=== PATIENT | female | born 1960 | race Caucasian/White ===

== ENCOUNTER → 2016-03-02 | Outpatient (CLI) | payer BC ==
[~2016-03-02] MED LIST: ALBUAER2 INH; BUDESUS; CALCTAB5 PO; CLRD24 PO; MULT-506 PO; SNG10 PO; SYN75 PO
--- NOTE | 2016-03-03 12:46 | MAMMOGRAPHY REPORT ---
BILATERAL DIGITAL SCREENING MAMMOGRAM TOMOSYNTHESIS WITH CAD: 03/02/2016 CLINICAL HISTORY: Routine screening. Patient has no complaints. TECHNIQUE: Breast tomosynthesis in addition to standard 2D mammography was performed. Current study was also evaluated with a Computer Aided Detection (CAD) system. COMPARISON: Comparison is made to exams dated: 08/28/2013 mammogram, 10/10/2011 mammogram, 04/24/2014 m ammogram, 09/11/2013 mammogram, and 09/27/2010 mammogram - [facility]. BREAST COMPOSITION: The tissue of both breasts is heterogeneously dense, which may obscure small ma sses. FINDINGS: There is a possible round 10 mm mass with obscured margins seen within the left medial br east on the cc view only, for which ultrasound and possible additional spot compression views are re commended for further evaluation. This may represent a cyst. A lobulated circumscribed oval 7 mm m ass seen within the right lateral anterior breast appears increased in size compared to the spot mag nification views from the March 2014 exam. Recommend ultrasound and possible additional views fo r further evaluation. The remainder of both breasts are stable compared to prior exams, without suspicious masses, calcifi cations, or areas of architectural distortion noted. Small benign-appearing mass in the right lower inner quadrant is stable compared to prior exams. A biopsy marker clip is again noted in the right upper outer quadrant. IMPRESSION: ACR BI-RADS CATEGORY 0: INCOMPLETE EVALUATION: NEED ADDITIONAL IMAGING EVALUATION Right lateral breast mass and left medial breast mass, for which additional imaging evaluation is re commended. The patient will be called to schedule an appointment. Approximately 10% of breast cancers are not detected with mammography. A negative mammographic repor t should not delay biopsy if a clinically suggestive mass is present. Delilah Ramírez M.D. ah/:03/03/2016 09:16:52 Radioisotope Technologist: Dmitry Gross RT(R)(M), [facility] letter sent: Addl Imaging 0 BI-RADS Code: ACR BI-RADS Category 0: Incomplete Evaluation: Need Additional Imaging Evaluation
== END | disposition home or self-care (01) ==
LOC: C.MAMM 16:26
PROVIDERS: ATTEND Obstetrics & Gynecology
DX: Z12.31 Encounter for screening mammogram for malignant neoplasm of breast (principal); N63 Unspecified lump in breast

== ENCOUNTER → 2016-09-07 | Outpatient (CLI) | payer BC ==
--- NOTE | 2016-09-07 15:23 | MAMMOGRAPHY REPORT ---
UNILATERAL LEFT DIGITAL DIAGNOSTIC MAMMOGRAM TOMOSYNTHESIS WITH CAD AND TARGETED LEFT ULTRASOUND: 08/26 CLINICAL HISTORY: 6 Month Follow-up Left. TECHNIQUE: Breast tomosynthesis in addition to standard 2D mammography was performed. Current study was also evaluated with a Computer Aided Detection (CAD) system. Left CC and MLO 2-D and tomosynthes is images were obtained. COMPARISON: Comparison is made to exams dated: 03/10/2016 ultrasound, 03/02/2016 mammogram, 08/28/2013 ma mmogram, 10/10/2011 mammogram, 09/27/2010 mammogram - [facility], and 05/20/2008. BREAST COMPOSITION: The tissue of the left breast is heterogeneously dense, which may obscure small masses. FINDINGS: Possible obscured 9 mm mass within the left medial breast on the cc view appears stable ma mmographically compared to the February 2016 exam. The remainder of the left breast is also stable co mpared to prior exams, without suspicious masses, calcifications, or areas of architectural distortio n noted. Targeted ultrasound was performed of the area of the previously seen left breast mass. In the left b reast at 9:30, 2 cm from the nipple, again noted is an oval hypoechoic parallel circumscribed mass wi th a few thin echogenic internal septations. The mass currently measures 9 x 4 x 6 mm, and is stable to slightly smaller compared to the February 2016 exam where the mass measured 11 x 4 x 8 mm. This m ay correspond with the mammographic mass and is probably benign and likely represent a cyst cluster. An oval anechoic benign simple cyst measuring 4 mm is noted in the left breast at 9:00, 2 cm from th e nipple. Another anechoic benign cyst with a thin internal septation measuring 3 x 2 mm is also not ed in the left breast at 10:00, 2 cm from the nipple. No suspicious solid masses are evident. IMPRESSION: ACR-BI-RADS CATEGORY 3: PROBABLY BENIGN, TARGETED ULTRASOUND ACR-BI-RADS CATEGORY 3: PRO BABLY BENIGN No significant interval change in size of hypoechoic 9 mm mass in the left 9:30 breast on ultrasound, which may correspond with the stable obscured mammographic mass. The mass is probably benign and tangela damon represents a cyst cluster. Recommend bilateral diagnostic tomosynthesis mammograms in 6 months, to reevaluate the left breast mass and for routine mammography of the right breast. The patient has been verbally notified of the results. Approximately 10% of breast cancers are not detected with mammography. A negative mammographic report should not delay biopsy if a clinically suggestive mass is present. Delilah Ramíerz M.D. ah/:09/07/2016 11:44:40 Weigh Boss: Shaina SLADE)([place]), [facility] letter sent: Follow Up Recommended 3 BI-RADS Code: ACR-BI-RADS Category 3: Probably Benign Ultrasound BI-RADS: ACR-BI-RADS Category 3: Pr obably Benign
== END | disposition home or self-care (01) ==
LOC: C.MAMM 10:29
PROVIDERS: ATTEND Physician Assistant
DX: R92.2 Inconclusive mammogram (principal); N63 Unspecified lump in breast

== ENCOUNTER → 2016-11-17 | Outpatient (CLI) | payer BC ==
--- NOTE | 2016-11-17 16:03 | DIAGNOSTIC IMAGING REPORT ---
THYROID ULTRASONOGRAPHY CLINICAL HISTORY: E03.9 Hypothyroidism COMPARISON STUDY: 02/04/2016 FINDINGS: The patient is status post a previous thyroidectomy. No thyroid tissue is visualized. No pathologic masses are visualized within the thyroid bed.. IMPRESSION: 1. Evidence of a prior thyroidectomy 2. No pathologic masses are visualized within the thyroid bed. Electronically signed by: Nimesh Rob M.D. 11/17/2016 4:02 PM Dictated Date/Time: 11/17/2016 4:01 PM
[2016-11-17 17:53] LABS: THYROID STIMULATING HORMONE 0.045 uIu/ml (0.300-4.500)
[2016-11-21 11:43] LABS: THYROGLOBULIN <0.1 NG/ML (2.8-40.9)
== END | disposition home or self-care (01) ==
LOC: C.ULTR 15:39
PROVIDERS: ATTEND Internal Medicine Endocrinology, Diabetes & Metabolism
DX: E03.9 Hypothyroidism, unspecified (principal); Z98.890 Other specified postprocedural states

== ENCOUNTER → 2017-03-16 | Outpatient (CLI) | payer BC ==
--- NOTE | 2017-03-19 07:45 | MAMMOGRAPHY REPORT ---
BILATERAL DIGITAL DIAGNOSTIC MAMMOGRAM TOMOSYNTHESIS WITH CAD AND TARGETED BILATERAL ULTRASOUND: 03/16 CLINICAL HISTORY: Short interval follow-up of left breast mass. The patient reports no current compl aints. TECHNIQUE: Breast tomosynthesis in addition to standard 2D mammography was performed. Current study was also evaluated with a Computer Aided Detection (CAD) system. Bilateral CC and MLO 2-D and tomosy nthesis images were obtained. COMPARISON: Comparison is made to exams dated: 09/07/2016 mammogram, 09/07/2016 ultrasound, 03/10/2016 ultrasound, 03/02/2016 mammogram, 08/28/2013 mammogram, and 10/10/2011 mammogram - [facility]. BREAST COMPOSITION: The tissue of both breasts is heterogeneously dense, which may obscure small mas ses. FINDINGS: There is a partially circumscribed and partially obscured 6 mm mass in the right lower inn er quadrant, for which ultrasound was performed. The remainder of both breasts are stable compared t o prior exams, without suspicious masses, calcifications, or areas of architectural distortion noted. A biopsy marker clip is again noted within the right upper outer quadrant. Targeted ultrasound was performed of the area of the previously seen left breast mass for which a fol low-up was recommended. In the left breast at 9:30, approximately 2 cm from the nipple, there is an oval parallel circumscribed hypoechoic mass which measures 9 x 4 x 8 mm. This is not significantly c hanged in size and appearance dating back to the February 2016 exam and is probably benign and may rep resent a cyst cluster, prominent fat lobule, or benign solid mass such as a fibroadenoma. Adjacent t o this is a small 3 mm anechoic benign simple cyst. In the right breast at 4:00 periareolar region, there is an oval circumscribed anechoic mass with a few thin internal septations, measuring 6 x 6 mm. This corresponds with the mammographic mass and is consistent with a benign cyst. Slightly inferio rly at approximately 4:30 periareolar region, another similar appearing circumscribed anechoic mass w ith a few thin internal septations is seen, which measures 3 x 4 x 4 mm, also consistent with a benig n cyst. IMPRESSION: ACR-BI-RADS CATEGORY 3: PROBABLY BENIGN, TARGETED ULTRASOUND ACR-BI-RADS CATEGORY 3: PRO BABLY BENIGN 1. Hypoechoic 9 mm mass in the left 9:30 breast is stable dating back to at least the February 2016 e xam and is probably benign. Recommend bilateral diagnostic tomosynthesis mammograms and repeat targe singh ultrasound in 12 months, to confirm 2 years of stability of the left breast mass and for routine mammography of the right breast. 2. Two adjacent benign cysts in the right 4:00 and 4:30 periareolar breast on ultrasound, one of whic h corresponds with a mammographic mass. The patient has been verbally notified of the results. Approximately 10% of breast cancers are not detected with mammography. A negative mammographic report should not delay biopsy if a clinically suggestive mass is present. Delilah Ramírez M.D. ah/:03/16/2017 14:24:28 Technology Services Manager: Dmitry CHERY(Rubin)([place]), [facility] letter sent: Follow Up Recommended 3 BI-RADS Code: ACR-BI-RADS Category 3: Probably Benign Ultrasound BI-RADS: ACR-BI-RADS Category 3: Pr obably Benign
== END | disposition home or self-care (01) ==
LOC: C.MAMM 13:51
PROVIDERS: ATTEND Physician Assistant
DX: N63.24 Unspecified lump in the left breast, lower inner quadrant (principal); N60.01 Solitary cyst of right breast

== ENCOUNTER → 2017-05-22 | Outpatient (CLI) | payer BC | END | disposition home or self-care (01) | LOC: C.LAB 17:28 | PROVIDERS: ATTEND Internal Medicine Endocrinology, Diabetes & Metabolism | DX: E03.9 Hypothyroidism, unspecified (principal) ==

== ENCOUNTER → 2017-06-25 | Outpatient (CLI) | payer BC | END | disposition home or self-care (01) | LOC: C.LAB 07:11 | PROVIDERS: ATTEND Internal Medicine Endocrinology, Diabetes & Metabolism | DX: E03.9 Hypothyroidism, unspecified (principal); C73 Malignant neoplasm of thyroid gland ==